=== PATIENT | male | born 1995 | race Caucasian/White ===

== ENCOUNTER 2020-04-23 02:47 | Emergency (ER) | payer BC ==
[~2020-04-23] VITALS: Ht 172.7 cm; Wt 129.3 kg
[~2020-04-23 02:47] MED LIST: ACET500 PO; ALBU.083IS; ALBU90I INH; AMOCLA500 PO; AMOX50SU PO; AZIT250 PO; CEPH500 PO; CODACE30 PO; HYDACE5 PO; HYDGUAL120 PO; IBUP600 PO; IBUPROFEN/TYLENOL; PROC5 PO; RXHYDACE PO
== END 2020-04-23 05:45 | disposition home or self-care (01) ==
LOC: ER 02:47
DX: K08.89 Other specified disorders of teeth and supporting structures (principal); J45.909 Unspecified asthma, uncomplicated; F17.200 Nicotine dependence, unspecified, uncomplicated; Z79.899 Other long term (current) drug therapy
CPT/HCPCS: 64450; 99282-25